=== PATIENT | female | born 1965 | race Caucasian/White ===

== ENCOUNTER 2017-04-20 15:16 | Emergency (ER) | payer OTHER, MEDICARE ==
[~2017-04-20] VITALS: Ht 162.6 cm; Wt 108.9 kg
[~2017-04-20 15:16] MED LIST: CITALOPRAM HBR10 MG PO; CLEOCIN HCL300 MG PO; HALOPERIDOL2 M1 PO; HYDROCORTI2.5 %/30 G TOP; HYDROXYZINE HCL25 M2 PO; KEFLEX500 MG PO; LEVOTHYROXIN0.112 MG PO; LEVOTHYROXIN0.125 M1 PO; LEVOTHYROXINE0.1 MG PO; LEVOTHYROXINE112 MCG PO; TERBINAFINE HY250 MG PO; VITAMIN D2000 UNI1 PO
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
--- NOTE | 2017-04-20 17:14 | RADIOLOGY REPORT ---
EXAMINATIONS: BILATERAL KNEES 1 VIEW CLINICAL INFORMATION: Knee pain after fall. COMPARISON: None. TECHNIQUE: Oblique views of each knee were obtained. FINDINGS: Oblique views of each knee are provided. While there are no fractures, the examination is considered insufficient an incomplete to evaluate for a joint effusion or completely exclude fractures. IMPRESSION: No fractures identified on solitary oblique views bilaterally. Please note that the examination is considered insufficient to exclude joint effusion or completely exclude the presence of a fracture. A routine 3 view series of each knee is recommended if there is continued clinical concern.
--- NOTE | 2017-04-20 17:18 | RADIOLOGY REPORT ---
EXAMINATION: XR SHOULDER, RIGHT XR ELBOW, RIGHT CLINICAL INFORMATION: Right upper extremity pain after fall. COMPARISON: None TECHNIQUE: Right shoulder, 2 views Right elbow, lateral view FINDINGS: Right shoulder: The radiographs were acquired at a large [id number]. Severe osteoarthritis of the acromioclavicular joint as manifest by subchondral cystic change, sclerosis and osteophytosis. Acute spiral fracture of the proximal humerus extends from the greater tuberosity and into the proximal diaphysis. The humeral shaft fragment is anteromedially displaced by approximately 0.6 cm and there is mild fracture apex anteromedial angulation. The humeral head is well-positioned over the intact glenoid. No evidence of scapular fracture. Right elbow: Standard views of the elbow could not be obtained due to the humeral injury. The lateral view of the elbow shows normal alignment. No evidence of fracture, subluxation or joint effusion at the suboptimally evaluated elbow. IMPRESSION: 1. Mildly displaced spiral fracture of the proximal humerus. 2. Severe osteoarthritis of the acromioclavicular joint. 3. No acute findings at the suboptimally evaluated elbow.
--- NOTE | 2017-04-20 17:20 | RADIOLOGY REPORT ---
EXAMINATION: RIGHT HAND 3 VIEWS CLINICAL INFORMATION: Right hand pain. COMPARISON: None. TECHNIQUE: PA, lateral, oblique views of the right hand were obtained. FINDINGS: There are no fractures or dislocations. There is no significant soft tissue swelling. IMPRESSION: Unremarkable right hand radiographs.
[2017-04-20] MEDS ORDERED: PERCOCET 5-3251 EACH PO (18:52)
[2017-04-20 19:00] VITALS: BP 144/80
== END 2017-04-20 19:00 ==
LOC: ERH 15:16
DX: S72.341A Displaced spiral fracture of shaft of right femur, initial encounter for closed fracture (principal); M25.561 Pain in right knee; M25.562 Pain in left knee; M79.601 Pain in right arm; W19.XXXA Unspecified fall, initial encounter; Y93.9 Activity, unspecified; Y92.9 Unspecified place or not applicable
CPT/HCPCS: 73030-RT; 73080-RT; 73130-RT; 73562-LT; 73562-RT